=== PATIENT | male | born 1980 ===

== ENCOUNTER 2016-09-19 17:47 | Emergency (ER) | payer MEDICAID ==
[2016-09-19 17:57] VITALS: O2SAT 100
[2016-09-19] MEDS ORDERED: Sodium Chloride 0.9% 1,000 ML IV STA (18:35)
[2016-09-19 18:52] LABS: BASO % 0.4 % (0.0-2.0); EOS # 0.1 K/uL (0.0-0.7); EOS % 0.5 % (0.0-4.0); HEMATOCRIT 47.4 % (35.0-51.0); LYMPH # 1.8 K/uL (1.0-4.3); LYMPH % 14.9 % (20.0-40.0); MEAN CELL VOLUME 88.6 fl (80.0-94.0); MEAN CORPUSCULAR HEMOGLOBIN 30.5 pg (27.0-31.0); MEAN CORPUSCULAR HGB CONC 34.5 g/dL (33.0-37.0); MEAN PLATELET VOLUME 9.9 fl (7.2-11.7); MONO # 0.6 K/uL (0.0-0.8); MONO % 5.2 % (0.0-10.0); NEUT # 9.4 K/uL (1.8-7.0); RED CELL DISTRIBUTION WIDTH 13.5 % (11.5-14.5); WHITE BLOOD COUNT 11.9 K/uL (4.8-10.8)
--- NOTE | 2016-09-19 18:59 | ED PDOC ---
HPI: Abdomen Time Seen by Provider: 09/19/16 18:14 Chief Complaint (Nursing): GI Problem Chief Complaint (Provider): Abdominal Pain History Per: Patient History/Exam Limitations: no limitations Onset/Duration Of Symptoms: Days (1 week), Worse Since (onset) Outside of [place] travel?: No Current Symptoms Are (Timing): Constant Severity: Moderate Location Of Pain/Discomfort: RUQ, Epigastric, LUQ Associated Symptoms: Chills, Nausea, Loss Of Appetite (unable to eat more than a couple of bites of food), Other (excessive thirst). denies: Fever, Vomiting, Diarrhea, Constipation Exacerbating Factors: Food Additional Complaint(s): Jovan Fuller is a 36 year old male, with no pertinent past medical history, who presents to the emergency department for the evaluation of abdominal pain, that the patient has been experiencing for 1 week. Patient states that the pain has been constant and has worsened since initial onset, prompting his visit to the ER. He reports that eating exacerbates his abdominal pain and that he is unable to eat more than a couple of bites of food before nausea kicks in. Initially, the patient states that he was urinating more frequently than normal; however, these symptoms have resolved. Patient reports bruising yesterday to bilateral sides that have also spontaneously resolved. Associated chills and excessive thirst are currently present. Denies a fever, vomiting, diarrhea, or constipation. Of note, patient admits that he has been excessively drinking over the last month ever since his grandmother . PMD: Osbaldo Monae Past Medical History Reviewed: Historical Data, Nursing Documentation, Vital Signs Vital Signs: Last Vital Signs Temp 98.2 F 09/19/16 17:52 Pulse 74 09/19/16 17:52 Resp 18 09/19/16 17:52 BP 112/69 09/19/16 17:52 Pulse Ox 100 09/19/16 21:19 - Medical History PMH: No Chronic Diseases - Surgical History Surgical History: No Surg Hx - Family History Family History: States: Diabetes - Social History Current smoker - smoking cessation education provided: Yes Alcohol: > 2 Drinks/Day Drugs: Denies - Home Medications Home Medications: Ambulatory Orders Medication Instructions Recorded Cephalexin [cephalexin] 500 mg PO BID #20 cap 07/25/15 Omeprazole Magnesium [Prilosec Otc] 20 mg PO DAILY #30 tcp 09/19/16 Ondansetron ODT [Zofran ODT] 1 odt PO Q6 PRN #30 odt 09/19/16 Sucralfate [Carafate] 1 gm PO Q6 PRN #30 tablet 09/19/16 - Allergies Allergies/Adverse Reactions: Allergies Allergy/AdvReac Type Severity Reaction Status Date / Time FISH Allergy URTICARIA Verified 07/25/15 12:00 peanut Allergy URTICARIA Verified 07/25/15 12:00 Review of Systems ROS Statement: Except As Marked, All Systems Reviewed And Found Negative Constitutional: Positive for: Chills. Negative for: Fever Gastrointestinal: Positive for: Nausea, Abdominal Pain, Other (loss of appetite and excessive thirst). Negative for: Vomiting, Diarrhea, Constipation Physical Exam - Reviewed Nursing Documentation Reviewed: Yes Vital Signs Reviewed: Yes - Physical Exam Appears: Positive for: Non-toxic, In Acute Distress (moderate painful distress) Head Exam: Positive for: ATRAUMATIC, NORMAL INSPECTION, NORMOCEPHALIC Skin: Positive for: Normal Color, Warm, Dry Eye Exam: Positive for: Normal appearance, EOMI, PERRL ENT: Positive for: Normal ENT Inspection, Pharynx Is (clear), Other (dry mucous membranes). Negative for: Pharyngeal Erythema, Tonsillar Exudate Neck: Positive for: Normal, Painless ROM, Supple Cardiovascular/Chest: Positive for: Regular Rate, Rhythm. Negative for: Murmur Respiratory: Positive for: Normal Breath Sounds. Negative for: Wheezing, Respiratory Distress Gastrointestinal/Abdominal: Positive for: Normal Exam, Soft, Tenderness ( epigastric and b/l upper quadrants tenderness). Negative for: Mass, Distended, Guarding, Rebound, Other (McBurney's point tenderness or Vila's sign) Back: Positive for: Normal Inspection. Negative for: Decreased ROM Extremity: Positive for: Normal ROM. Negative for: Tenderness, Deformity Lymphatic: Negative for: Adenopathy Neurologic/Psych: Positive for: Alert, Oriented. Negative for: Motor/Sensory Deficits - Laboratory Results Result Diagrams: 09/19/16 18:37 09/19/16 18:37 - ECG O2 Sat by Pulse Oximetry: 100 (RA) Pulse Ox Interpretation: Normal Medical Decision Making Medical Decision Makin:14 Initial Impression: Abdominal pain Initial Plan: * Abdomen US * Type and Screen * CBC * CMP * PT/PTT * Lipase * UA * Dextrose 5%-0.9% NS 1,000 ml IV at 100 mls/hr * Sodium Chloride 0.9% 1,000 ml IV at 1,000 mls/hr * Pantoprazole 40 mg IVP * Ondansetron 4 mg IVP * Blood Culture * Reevaluation No clinically significant lab abnormalities EXAM: US Abdomen Complete CLINICAL HISTORY: 36 years old, male; Pain; Abdominal pain; Epigastric; Additional info: Abd pain TECHNIQUE: Real-time ultrasound of the abdomen (complete) with image documentation. COMPARISON: No relevant prior studies available. FINDINGS: Liver: Normal echogenicity. No mass. No intrahepatic bile duct dilatation. Gallbladder: Contracted. No gallstones. No wall thickening. No pericholecystic fluid. No sonographic Vila's sign. Common bile duct: No dilatation. No stones. Pancreas: Unremarkable as visualized. Kidneys: Normal echogenicity. No hydronephrosis. Spleen: No splenomegaly. Aorta: Unremarkable. No aneurysm. Inferior vena cava: Unremarkable. Free fluid: No significant free fluid. IMPRESSION: 1. No acute findings. 2. Non-acute findings are described above. Thank you for allowing us to participate in the care of your patient. Dictated and Authenticated by: Iván Fish MD 09/19/2016 8:52 PM Eastern Time ([place] & [place]) Pt reports feeling better. DW pt findings and plan of care. Tolerated PO in ER. Eager to go home. Dangers of excessive alcohol discussed. Scribe Attestation: Documented by Danilo Healy, acting as a scribe for Eda Denton MD. Provider Scribe Attestation: All medical record entries made by the Scribe were at my direction and personally dictated by me. I have reviewed the chart and agree that the record accurately reflects my personal performance of the history, physical exam, medical decision making, and the department course for this patient. I have also personally directed, reviewed, and agree with the discharge instructions and disposition. Disposition - Clinical Impression Clinical Impression: Abdominal pain, Gastritis Counseled Patient/Family Regarding: Studies Performed, Diagnosis, Need For Followup, Rx Given - Disposition Referrals: Tho Carlisle MD, PhD [Staff Provider] - (CALL TOMORROW TO SETUP FOLLOW UP APPOINTMENT WITHIN A WEEK) Disposition: Routine/Home Disposition Time: 21:00 Condition: IMPROVED Prescriptions: Omeprazole Magnesium [Prilosec Otc] 20 mg PO DAILY #30 tcp Ondansetron ODT [Zofran ODT] 1 odt PO Q6 PRN #30 odt PRN Reason: Nausea/Vomiting Sucralfate [Carafate] 1 gm PO Q6 PRN #30 tablet PRN Reason: Abdominal pain Instructions: Abdominal Pain (ED), Gastritis (ED)
[2016-09-19 19:02] LABS: ALB/GLOB RATIO 1.5 (1.0-2.1); ALKALINE PHOSPHATASE 70 U/L (38-126); ALT/SGPT 31 U/L (21-72); AST/SGOT 27 U/L (17-59); BILIRUBIN,TOTAL 0.7 mg/dl (0.2-1.3); BLOOD UREA NITROGEN 12 mg/dl (9-20); CALCIUM 9.7 mg/dL (8.4-10.2); CARBON DIOXIDE 21 mmol/L (22-30); CHLORIDE 107 mmol/L (98-107); GFR AFRICAN-AMERICAN > 60; GLUCOSE,RANDOM 94 mg/dL (75-110); LIPASE 110 U/L (23-300); RBC URINE 3 /hpf (0-3); SODIUM 140 mmol/l (132-148); TOTAL PROTEIN 8.1 G/DL (6.3-8.2); URINE BACTERIA OCC (<OCC); URINE BILIRUBIN NEGATIVE (NEGATIVE); URINE BLOOD NEGATIVE (NEGATIVE); URINE COLOR AMBER (YELLOW); URINE GLUCOSE (UA) NEG (Normal); URINE KETONE NEGATIVE (NEGATIVE); URINE LEUKOCYTE ESTERASE NEG Leu/uL (Negative); URINE PROTEIN 100 mg/dL (NEGATIVE); URINE UROBILINOGEN 0.2-1.0 mg/dL (0.2-1.0); WBC URINE 4 /hpf (0-5)
[2016-09-19 19:13] LABS: PARTIAL THROMBOPLASTIN TIME 29.2 SECONDS (23.3-32.5)
--- NOTE | 2016-09-19 20:52 | US ---
EXAM: US Abdomen Complete CLINICAL HISTORY: 36 years old, male; Pain; Abdominal pain; Epigastric; Additional info: Abd pain TECHNIQUE: Real-time ultrasound of the abdomen (complete) with image documentation. COMPARISON: No relevant prior studies available. FINDINGS: Liver: Normal echogenicity. No mass. No intrahepatic bile duct dilatation. Gallbladder: Contracted. No gallstones. No wall thickening. No pericholecystic fluid. No sonographic Vila's sign. Common bile duct: No dilatation. No stones. Pancreas: Unremarkable as visualized. Kidneys: Normal echogenicity. No hydronephrosis. Spleen: No splenomegaly. Aorta: Unremarkable. No aneurysm. Inferior vena cava: Unremarkable. Free fluid: No significant free fluid. IMPRESSION: 1.No acute findings. 2.Non-acute findings are described above.
[2016-09-19 22:11] VITALS: BP 129/79; PULSE 60; RESP 16; TEMP 97.9
== END 2016-09-19 22:10 | disposition home or self-care (01) ==
LOC: H.ER 17:47
DX: R10.13 Epigastric pain (principal); K29.70 Gastritis, unspecified, without bleeding; R11.0 Nausea

== ENCOUNTER 2016-09-28 11:08 | Emergency (ER) | payer MEDICAID ==
[2016-09-28 11:17] VITALS: BMI 29.5
[2016-09-28 11:18] VITALS: BP 116/67; PULSE 59; RESP 20; TEMP 98
[2016-09-28 11:25] VITALS: O2SAT 98
--- NOTE | 2016-09-28 11:58 | ED PDOC ---
HPI: Male Pain Time Seen by Provider: 09/28/16 11:38 Chief Complaint (Nursing): Male Genitourinary Chief Complaint (Provider): Bumps on penis x 2 days History Per: Patient History/Exam Limitations: no limitations Onset/Duration Of Symptoms: Days Current Symptoms Are (Timing): Still Present Additional Complaint(s): Pt denies discharge, denies itchiness, denies pain or denies drainage from lesions Past Medical History Reviewed: Historical Data, Nursing Documentation, Vital Signs Vital Signs: Last Vital Signs Temp 98 F 09/28/16 11:17 Pulse 59 L 09/28/16 11:17 Resp 20 09/28/16 11:17 BP 116/67 09/28/16 11:17 Pulse Ox 98 09/28/16 11:23 - Medical History PMH: No Chronic Diseases - Surgical History Surgical History: No Surg Hx - Family History Family History: States: Diabetes - Living Arrangements Living Arrangements: With Family - Social History Current smoker - smoking cessation education provided: No Alcohol: Occasional - Home Medications Home Medications: Ambulatory Orders Medication Instructions Recorded Cephalexin [cephalexin] 500 mg PO BID #20 cap 07/25/15 Omeprazole Magnesium [Prilosec Otc] 20 mg PO DAILY #30 tcp 09/19/16 Ondansetron ODT [Zofran ODT] 1 odt PO Q6 PRN #30 odt 09/19/16 Sucralfate [Carafate] 1 gm PO Q6 PRN #30 tablet 09/19/16 - Allergies Allergies/Adverse Reactions: Allergies Allergy/AdvReac Type Severity Reaction Status Date / Time FISH Allergy URTICARIA Verified 07/25/15 12:00 peanut Allergy URTICARIA Verified 07/25/15 12:00 Review of Systems ROS Statement: Except As Marked, All Systems Reviewed And Found Negative Genitourinary Male: Positive for: Rash Physical Exam - Reviewed Nursing Documentation Reviewed: Yes Vital Signs Reviewed: Yes - Physical Exam Appears: Positive for: Well, Non-toxic, No Acute Distress Head Exam: Positive for: ATRAUMATIC, NORMAL INSPECTION, NORMOCEPHALIC Skin: Positive for: Normal Color, Warm, DRY Eye Exam: Positive for: Normal appearance ENT: Positive for: Normal ENT Inspection Neck: Positive for: Normal, Painless ROM Respiratory: Negative for: Accessory Muscle Use, Respiratory Distress Male Genital Exam: Positive for: other ((+) flesh color papules with central dimple). Negative for: normal genitalia Back: Positive for: Normal Inspection Extremity: Positive for: Normal ROM Neurologic/Psych: Positive for: Alert, Oriented - ECG O2 Sat by Pulse Oximetry: 98 Disposition - Clinical Impression Clinical Impression: Mollusca contagiosa - Patient ED Disposition Is Patient to be Admitted: No Counseled Patient/Family Regarding: Diagnosis, Need For Followup - Disposition Referrals: [facility] [Outside] Disposition: Routine/Home Disposition Time: 11:59 Condition: GOOD Instructions: Molluscum Contagiosum (ED)
== END 2016-09-28 12:07 | disposition home or self-care (01) ==
LOC: H.ER 11:08
DX: B08.1 Molluscum contagiosum (principal)

== ENCOUNTER 2017-07-30 18:49 | Emergency (ER) | payer MEDICAID ==
[2017-07-30 18:49] VITALS: BMI 29.5
[2017-07-30 18:59] VITALS: BP 121/77; PULSE 68; RESP 16; TEMP 97.8; O2SAT 100
--- NOTE | 2017-07-30 19:24 | ED PDOC ---
HPI: General Adult Time Seen by Provider: 07/30/17 19:36 Chief Complaint (Nursing): ENT Problem Chief Complaint (Provider): r/o STD mouth discomfort History Per: Patient History/Exam Limitations: no limitations Onset/Duration Of Symptoms: Days (x2 months) Have you had recent travel within the past 21 days to any of the following countries: [place], [place], [place] or [place]?: No Current Symptoms Are (Timing): Still Present Pain Scale Rating Of: 2 Location: Hard palate centerline Recent Trauma: None Additional Complaint(s): Jovan Fuller is a 36 year old male, with no significant past medical history, who presents to the emergency department complaining of a "ball" on the roof of his mouth onset for x2 months. Patient states the ball will sometimes change in size. He is concerned it might be an STD because he recently started seeing someone. He denies any fever, chills or other medical complaints. PMD: None provided. Past Medical History Reviewed: Historical Data, Nursing Documentation, Vital Signs Vital Signs: Last Vital Signs Temp 97.8 F 07/30/17 18:57 Pulse 68 07/30/17 18:57 Resp 16 07/30/17 18:57 BP 121/77 07/30/17 18:57 Pulse Ox 100 07/30/17 20:43 - Medical History PMH: No Chronic Diseases - Surgical History Surgical History: No Surg Hx - Family History Family History: States: Diabetes - Social History Current smoker - smoking cessation education provided: No Alcohol: Social Drugs: Cannabis - Home Medications Home Medications: Ambulatory Orders Medication Instructions Recorded Cephalexin [cephalexin] 500 mg PO BID #20 cap 07/25/15 Omeprazole Magnesium [Prilosec Otc] 20 mg PO DAILY #30 tcp 09/19/16 Ondansetron ODT [Zofran ODT] 1 odt PO Q6 PRN #30 odt 09/19/16 Sucralfate [Carafate] 1 gm PO Q6 PRN #30 tablet 09/19/16 - Allergies Allergies/Adverse Reactions: Allergies Allergy/AdvReac Type Severity Reaction Status Date / Time FISH Allergy URTICARIA Verified 07/25/15 12:00 peanut Allergy URTICARIA Verified 07/25/15 12:00 Review of Systems ROS Statement: Except As Marked, All Systems Reviewed And Found Negative ENT: Positive for: Mouth Pain, Other ("ball" on roof of the mouth). Negative for: Ear Pain, Ear Discharge, Nose Pain, Mouth Swelling Respiratory: Negative for: Cough Gastrointestinal: Negative for: Nausea Genitourinary Male: Negative for: Dysuria, Frequency, Hematuria, Penile Discharge Physical Exam - Reviewed Nursing Documentation Reviewed: Yes Vital Signs Reviewed: Yes - Physical Exam Appears: Positive for: Well, Non-toxic, No Acute Distress Head Exam: Positive for: ATRAUMATIC, NORMAL INSPECTION, NORMOCEPHALIC Skin: Positive for: Normal Color, Warm, Dry Eye Exam: Positive for: Normal appearance ENT: Positive for: Other (small closed non-vesicular marking on hard palate at centerline midway between lingual toothline and pharynx. ) Neck: Positive for: Normal, Painless ROM, Supple. Negative for: Decreased ROM Respiratory: Positive for: Normal Breath Sounds Neurologic/Psych: Positive for: Alert, Oriented - ECG O2 Sat by Pulse Oximetry: 100 (RA) Pulse Ox Interpretation: Normal Medical Decision Making Medical Decision Making: Initial Impression: comments by pt indicate promiscuity; painless lesion in the mouth that reappears from time to time raises syp issues Initial Plan: --Rapid plasma reagin -- g/c urine analysis and treatment prophylactically --Reevaluation ~ Scribe Attestation: Documented by Edgardo Cunningham, acting as a scribe for Eriberto Funk PA-C. Provider Scribe Attestation: All medical record entries made by the Scribe were at my direction and personally dictated by me. I have reviewed the chart and agree that the record accurately reflects my personal performance of the history, physical exam, medical decision making, and the department course for this patient. I have also personally directed, reviewed, and agree with the discharge instructions and disposition. Disposition - Clinical Impression Clinical Impression: Sexually transmitted disease counseling - Patient ED Disposition Is Patient to be Admitted: No Doctor Will See Patient In The: Office - Disposition Referrals: Megan Camacho DMD [Staff Provider] - Disposition: Routine/Home Disposition Time: 20:44 Condition: GOOD Instructions: Sex as You Get Older Forms: [employer] ([place])
[2017-07-30] MEDS ORDERED: cefTRIAXone (Rocephin) 250 mg Inj IM ONE (20:01)
[2017-07-30] MEDS ORDERED: cefTRIAXone (Rocephin) 250 mg Inj ONE (20:21)
== END 2017-07-30 20:42 | disposition home or self-care (01) ==
LOC: H.ER 18:49
DX: Z11.3 Encounter for screening for infections with a predominantly sexual mode of transmission (principal)
CPT/HCPCS: 86592; 87491; 87591; 96372; 99282; J0696

== ENCOUNTER 2018-07-04 15:57 | Emergency (ER) | payer MEDICAID ==
[2018-07-04 15:58] VITALS: BMI 29.5
[2018-07-04 16:12] VITALS: BP 114/65; PULSE 65; RESP 18; TEMP 97.7; O2SAT 100
--- NOTE | 2018-07-04 17:46 | ED PDOC ---
HPI: Back Time Seen by Provider: 07/04/18 17:09 Chief Complaint (Nursing): Back Pain Chief Complaint (Provider): Back Pain History Per: Patient History/Exam Limitations: no limitations Onset/Duration Of Symptoms: Persistent, Worse Since (x3 days) Current Symptoms Are (Timing): Still Present Additional Complaint(s): 37 year old male with pmHx of chronic back pain, presents to ED with persistent lower back pain that radiates to bilateral legs. He reports pain has worsen in the last few days but denies taking any medication for relief. Prior to examination, patient proceeds to get out of bed, approaches provider then demanded not to receive Tylenol or Motrin. PCP: Dr. David Ugarte Jr. Past Medical History Reviewed: Historical Data, Nursing Documentation, Vital Signs Vital Signs: Last Vital Signs Temp 97.7 F 07/04/18 16:11 Pulse 65 07/04/18 16:11 Resp 18 07/04/18 16:11 BP 114/65 07/04/18 16:11 Pulse Ox 100 07/04/18 16:11 - Medical History PMH: Back Problems - Family History Family History: States: Diabetes - Home Medications Home Medications: Ambulatory Orders Medication Instructions Recorded Cephalexin [cephalexin] 500 mg PO BID #20 cap 07/25/15 Omeprazole Magnesium [Prilosec Otc] 20 mg PO DAILY #30 tcp 09/19/16 Ondansetron ODT [Zofran ODT] 1 odt PO Q6 PRN #30 odt 09/19/16 Sucralfate [Carafate] 1 gm PO Q6 PRN #30 tablet 09/19/16 - Allergies Allergies/Adverse Reactions: Allergies Allergy/AdvReac Type Severity Reaction Status Date / Time FISH Allergy URTICARIA Verified 07/04/18 16:11 peanut Allergy URTICARIA Verified 07/04/18 16:11 Review of Systems ROS Statement: Except As Marked, All Systems Reviewed And Found Negative Musculoskeletal: Positive for: Back Pain, Leg Pain Physical Exam - Reviewed Nursing Documentation Reviewed: Yes Vital Signs Reviewed: Yes - Physical Exam Appears: Positive for: Non-toxic, No Acute Distress Head Exam: Positive for: ATRAUMATIC, NORMAL INSPECTION, NORMOCEPHALIC Skin: Positive for: Normal Color Eye Exam: Positive for: Normal appearance Neurologic/Psych: Positive for: Gait (steady, unassisted) - ECG O2 Sat by Pulse Oximetry: 100 (RA) Pulse Ox Interpretation: Normal Medical Decision Making Medical Decision Making: Initial Impression: Chronic back pain Initial Plan: * Flexeril 10mg PO * Toradol 30mgm IM Time: 1740 -Unable to perform full physical exam due to patient uncooperation. --Upon nurse informing patient of plan for pain control including NSAID and flexeril , patient refuses further treatment then left ED. Scribe Attestation: Documented by Trina Mcnamara, acting as a scribe for Torie Goodson MD. Provider Scribe Attestation: All medical record entries made by the Scribe were at my direction and personally dictated by me. I have reviewed the chart and agree that the record accurately reflects my personal performance of the history, physical exam, medical decision making, and the department course for this patient. I have also personally directed, reviewed, and agree with the discharge instructions and disposition. Disposition - Clinical Impression Clinical Impression: Chronic back pain - Patient ED Disposition Is Patient to be Admitted: No - Disposition Disposition: Left W/O Treatment Disposition Time: 17:40 Condition: STABLE
== END 2018-07-04 17:40 | disposition left against medical advice (07) ==
LOC: H.ER 15:57
DX: G89.29 Other chronic pain (principal)